=== PATIENT | male | born 1950 | race Caucasian/White ===

== ENCOUNTER → 2016-10-04 | Outpatient (CLI) | payer OTHER ==
[2016-10-04 10:13] LABS: BLOOD GAS BASE EXCESS 4.2 mmol/L (-2-2); BLOOD GAS CARBOXYHEMOGLOBIN 6.4 % (0-4); BLOOD GAS HCO3 29 mmol/L (22-26); BLOOD GAS METHEMOGLOBIN 1.3 % (0-2); BLOOD GAS O2 HGB SATURATION 79 % (90-100); BLOOD GAS OXYGEN CONTENT 17.8 Vol % (12.0-20.0); BLOOD GAS PCO2 46 mmHg (38-42); BLOOD GAS PO2 47 mmHg (61-120); BLOOD GAS TOTAL HGB 16.1 G/DL (12.0-16.0); TEMP CORR TO 98.6
[2016-10-04 10:14] LABS: CRITICAL VALUE YES; DRAW SITE RT RADIAL; FIO2 21 %; NUMBER OF ARTERIAL PUNCTURES 1; STAT NO; ULNAR PULSE PRESENT
--- NOTE | 2016-10-20 10:19 | RSPPFT ---
DATE OF PROCEDURE: 10/04/16 COMMENTS: Spirometry with FVC of 2.3, FEV1 of 1.8, FEV1/FVC ratio at 78%. The TLC is 54% of predicted. Diffusion capacity is 35% of predicted and normal when corrected for alveolar volume. Room air arterial blood gases show pH of 7.41, PCO2 of 46, PO2 of 47. IMPRESSION: 1. No evidence of airways obstruction. 2. Non-significant response to acutely inhaled bronchodilator. 3. Moderate airways restriction. 4. Severe reduction in diffusion capacity. 5. Hypoxic and hypercarbic respiratory failure.
== END ==
LOC: HRSP 08:58
PROVIDERS: ATTEND Internal Medicine Sleep Medicine
DX: R06.89 Other abnormalities of breathing (principal)
CPT/HCPCS: 36600; 82805; 94060; 94726; 94729